=== PATIENT | male | born 1965 | race Two or more races ===

== ENCOUNTER → 2016-06-12 | Outpatient (REF) ==
--- NOTE | 2016-06-12 16:38 | DI ---
EXAM: PA and lateral views of the chest HISTORY: Pre employment screening COMPARISON: Chest x-ray 06/01/2014 FINDINGS: The cardiomediastinal silhouette is normal. There is no pneumothorax or pleural effusion . There is no consolidation, nodule or mass. The osseous structures are unremarkable. There are cast rgical clips in the right upper quadrant. IMPRESSION: No acute cardiopulmonary process.
== END ==
LOC: RAD 16:19
DX: Z00.00 Encounter for general adult medical examination without abnormal findings (principal)